=== PATIENT | female | born 1995 | race Caucasian/White ===

== ENCOUNTER 2017-04-27 18:20 | Emergency (ER) | payer BC ==
[2017-04-27 18:26] VITALS: RESP 18
[2017-04-27 18:59] LABS: Appearance,Urine Clear (Clear); Bilirubin,Urine Negative (Negative); Glucose,Urine (UA) Negative (Negative); Ketones,Urine Negative (Negative); Leukocyte Esterase,Urine Moderate (Negative); Mucus,Urine Rare /hpf; Nitrite,Urine Negative (Negative); PH, Urine 7.5 (5.0-8.0); Particle Count 2231; Protein,Urine Trace (Negative); RBC,Urine 29 /hpf (0-5); Specific Gravity,Urine 1.007 (1.001-1.035); UA Billing (MACRO vs. MICRO) MICRO; Urobilinogen,Urine <2.0 mg/dL (<2.0); WBC,Urine 14 /hpf (0-5)
[2017-04-27] MEDS ORDERED: CEPHALEXIN 500MG STARTER PACK 4 CAP BTL PO STA (19:46)
[2017-04-27] MEDS ORDERED: PHENAZOPYRIDINE 100 MG TAB PO STA (19:46)
--- NOTE | 2017-04-27 19:46 | ED ---
General Adult HPI - General Chief complaint: Abdominal Pain Stated complaint: Abd Pain Time Seen by Provider: 04/27/17 19:32 Source: patient Mode of arrival: ambulatory Limitations: no limitations - History of Present Illness Initial comments: Mark is a previously healthy 22-year-old female presents to the emergency department today with a complaint of 5 days of suprapubic abdominal pain, hematuria, dysuria and urinary frequency. Patient reports his symptoms began on Wednesday, she's been trying to drink plenty of fluids to maintain hydration however this has not helped the symptoms. She reports that today she has worsened hematuria which prompted her to come to the emergency department for further evaluation. Reports that she has been sexually active in the past but not any in the recent months, she denies any concern for sexual transmitted infections or . She denies any history of urinary tract infection the past she denies any history of kidney stones. Patient denies any fevers, chills, nausea, vomiting, change in appetite or change in bowel habits. Has not tried any [id number] remedies aside from refraining from caffeine as she has been told that this can worsen symptoms. - Related Data Home Medications Medication Instructions Recorded Confirmed No Known Home Medications [No 04/27/17 04/27/17 Known Home Medications] Previous Rx's Medication Instructions Recorded Cephalexin [Keflex] 500 mg PO Q12HR #14 cap 04/27/17 Phenazopyridine HCl [Pyridium] 100 mg PO TID #9 tab 04/27/17 Allergies Allergy/AdvReac Type Severity Reaction Status Date / Time No Known Allergies Allergy Verified 04/27/17 19:47 Review of Systems ROS Statement: Those systems with pertinent positive or pertinent negative responses have been documented in the HPI. ROS Other: All systems not noted in ROS Statement are negative. Constitutional: Denies: fever, chills Respiratory: Denies: cough, dyspnea Cardiovascular: Denies: chest pain, palpitations Endocrine: Denies: fatigue Gastrointestinal: Reports: abdominal pain. Denies: nausea, vomiting, diarrhea, constipation Genitourinary: Reports: urgency, dysuria, frequency, hematuria. Denies: discharge, abnormal menses Musculoskeletal: Denies: back pain Skin: Denies: rash, lesions Neurological: Denies: headache, weakness Psychiatric: Denies: anxiety, depression Past Medical History Past Medical History: No Reported History History of Any Multi-Drug Resistant Organisms: None Reported Past Surgical History: No Surgical Hx Reported Past Psychological History: No Psychological Hx Reported Smoking Status: Never smoker Past Alcohol Use History: None Reported Past Drug Use History: None Reported General Exam Limitations: no limitations General appearance: alert, in no apparent distress Head exam: Present: atraumatic, normocephalic Eye exam: Present: normal appearance, PERRL ENT exam: Present: normal exam Neck exam: Present: normal inspection Respiratory exam: Absent: respiratory distress Cardiovascular Exam: Present: regular rate, normal rhythm GI/Abdominal exam: Present: soft, tenderness (suprapubic). Absent: distended Rectal exam: Present: deferred Extremities exam: Present: normal inspection Back exam: Present: normal inspection. Absent: CVA tenderness (R), CVA tenderness (L) Neurological exam: Present: alert, oriented X3 Psychiatric exam: Present: normal affect Skin exam: Present: warm, dry Course Vital Signs 04/27/17 04/27/17 18:24 20:00 Temperature 98.7 F 98.2 F Pulse Rate 75 53 L Respiratory 18 18 Rate Blood Pressure 138/78 121/59 O2 Sat by Pulse 100 99 Oximetry Medical Decision Making - Medical Decision Making Urinalysis was obtained prior to patient being brought back to the emergency department Patient was seen and evaluated, vital signs were reviewed History was obtained from the patient Patient with dysuria, hematuria, urinary frequency and urgency. 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 She received her first dose of Keflex in the emergency department as well as a dose of Pyridium for symptomatically improvement. All questions pertaining to care were answered to the best of my ability and patient was discharged home in good condition - Lab Data Lab Results 04/27/17 04/27/17 Range/Units 18:40 18:40 Urine Color Light Yellow Urine Appearance Clear (Clear) Urine pH 7.5 (5.0-8.0) Ur Specific [place] 1.007 (1.001-1.035) Urine Protein Trace H (Negative) Urine Glucose (UA) Negative (Negative) Urine Ketones Negative (Negative) Urine Blood Moderate H (Negative) Urine Nitrite Negative (Negative) Urine Bilirubin Negative (Negative) Urine Urobilinogen <2.0 (<2.0) mg/dL Ur Leukocyte Esterase Moderate H (Negative) Urine RBC 29 H (0-5) /hpf Urine WBC 14 H (0-5) /hpf Urine Mucus Rare H (None) /hpf Urine HCG, Qual Not Detected (Not Detectd) Disposition Clinical Impression: UTI (urinary tract infection) Disposition: HOME SELF-CARE Condition: Good Instructions: Urinary Tract Infection in Women (ED) Prescriptions: Cephalexin [Keflex] 500 mg PO Q12HR #14 cap Phenazopyridine HCl [Pyridium] 100 mg PO TID #9 tab Referrals: None,Stated [Primary Care Provider] - 1-2 days Time of Disposition: 20:04
[2017-04-27 20:02] VITALS: BP 121/59; PULSE 53; TEMP 98.2
== END 2017-04-27 20:09 | disposition home or self-care (01) ==
LOC: EC 18:20
DX: N39.0 Urinary tract infection, site not specified (principal)
CPT/HCPCS: 81001; 81025; 99284